=== PATIENT | female | born 1985 | race Caucasian/White ===

== ENCOUNTER 2017-12-12 17:15 | Observation (INO) | payer OTHER ==
[~2017-12-12 17:15] MED LIST: ENAL2.5T PO; TRAM50TA PO
[2017-12-12] MEDS ORDERED: ACETAMINOPHEN 500 MG CPLT PO PRN (17:30)
[2017-12-12] MEDS ORDERED: SODIUM CHLORIDE 0.9% FLUSH 10 ML FLUSH IV FLUSH PRN (17:30)
[2017-12-12] MEDS ORDERED: NITROGLYCERIN 0.4 MG SL 25 TABS/BTL SL PRN (17:30)
[2017-12-12] MEDS ORDERED: ONDANSETRON HCL 4 MG/2 ML VIAL IV PUSH PRN (17:30)
[2017-12-12 18:02] VITALS: BP 167/94; PULSE 79; RESP 16; TEMP 98; O2SAT 99
[2017-12-12 19:43] LABS: TROPONIN I LESS THAN 0.02 NG/ML (0.02-0.05)
[2017-12-12 20:04] VITALS: BP 140/91; PULSE 82; RESP 16; TEMP 98; O2SAT 99
[2017-12-12] MEDS: SODIUM CHLORIDE 0.9% FLUSH 10 ML FLUSH IV FLUSH SCH (21:00)
[2017-12-12 21:18] LABS: TROPONIN I LESS THAN 0.02 NG/ML (0.02-0.05)
[2017-12-12 23:53] VITALS: BP 140/82; PULSE 91; RESP 16; TEMP 97.4; O2SAT 96
[2017-12-13 04:00] VITALS: BP 127/67; PULSE 76; RESP 16; TEMP 97.6; O2SAT 96
[2017-12-13 06:54] VITALS: PULSE 80
[2017-12-13 06:56] VITALS: PULSE 82
[2017-12-13 07:54] VITALS: BP 134/77; PULSE 99; RESP 18; TEMP 98; O2SAT 96
[2017-12-13] MEDS: SODIUM CHLORIDE 0.9% FLUSH 10 ML FLUSH IV FLUSH SCH (07:59)
--- NOTE | 2017-12-13 08:47 | MH ---
cc: Glen Fiore MD DATE OF ADMISSION: 12/12/2017 HISTORY OF PRESENT ILLNESS: This is a 32-year-old woman who was admitted to the hospital after having complaints of chest discomfort. She was awakened from sleep yesterday with a sensation of a weight on her chest. She noted that she felt unable to take a complete deep breath. No diaphoresis was present. She did have some mild nausea and some mild dizziness. This persisted throughout the day. She came to the emergency department in [place] where she was subsequently admitted and sent here to the chest pain center. Since her admission to the hospital, the serial electrocardiograms and troponins have been unremarkable. A D-dimer was 0.33. Chest x-ray was also unremarkable. She is feeling well now and has had resolution of her discomfort. Risks factors for coronary disease include a history of hypertension, which she noted the onset of several months ago. She has been treated with lisinopril, but her blood pressure continues to be out of control with systolics in the 140-150 range. No history of diabetes or hyperlipidemia, has been present. She does have a father who in his 30s of a myocardial infarction. PAST MEDICAL HISTORY: Otherwise unremarkable. ALLERGIES: NONE, ALTHOUGH SHE HAS HAD AN ADVERSE REACTION TO NAPROXEN IN THE PAST. SOCIAL HISTORY: The patient is a nonsmoker. She occasionally uses alcohol. She does not use recreational drugs. MEDICATIONS: Her medications at home have included Lisinopril 20 mg daily. REVIEW OF SYSTEMS: Otherwise unremarkable. PHYSICAL EXAM: VITAL SIGNS: Her blood pressure is 134/77, pulse is 70 and regular. NECK: There is no neck vein distention. Carotids are normal. LUNGS: Clear. CARDIOVASCULAR: Exam reveals a regular rate and rhythm. No significant murmur present and there is no gallop noted. EXTREMITIES: Reveal no edema. Peripheral pulses are intact. ASSESSMENT: The patient has had atypical chest discomfort. PLAN: We will plan a treadmill exercise test for further evaluation. MD FABIÁN Peres/MARILEE , 08:30 AM , 08:46 AM
[2017-12-13] MEDS ORDERED: ASPIRIN 325 MG TAB PO SCH (09:00)
[2017-12-13] MEDS ORDERED: HYDR25TA5 PO (10:55)
--- NOTE | 2017-12-13 10:55 | HHI.DCPOC ---
Discharge Care Plan Diagnosis: (1) Atypical chest pain (2) Hypertension Goals to Promote Your Health * To prevent worsening of your condition and complications * To maintain your health at the optimal level Directions to Meet Your Goals Take your medications as prescribed Follow your dietary instruction Follow activity as directed Keep your appointments as scheduled Take your immunizations and boosters as scheduled If your symptoms worsen call your PCP, if no PCP go to Urgent Care Center or Emergency Room Smoking is Dangerous to Your Health. Avoid second hand smoke Call the 24-hour hour crisis hotline for domestic abuse at [facility] December 13, 2017 10:55
[2017-12-13] MEDS ORDERED: LISI-515 PO (11:06)
[2017-12-13 14:28] VITALS: O2SAT 96
--- NOTE | 2017-12-13 16:18 | EKG ---
Date Performed: 12/12/2017 Time Performed: 20:43:08 PTAGE: 32 years EKG: Sinus rhythm NORMAL ECG NO PREVIOUS TRACING DOCTOR: Glen Fiore Interpretating Date/Time 12/13/2017 16:16:11
--- NOTE | 2017-12-13 16:24 | TR ---
Date Performed: 12/13/2017 Time Performed: 10:23:38 DOCTOR: Glen Fiore DRUG LIST: CLINICAL HISTORY: REASON FOR TEST: REASON FOR ENDING: OBSERVATION: CONCLUSION: Kalpesh protocol completed. Stopped sec to reaching target heart rate and leg fatigue. Maximum YV=101 Target HR Achieved=86.0% Maximum JT=675/84 Total Exercise Time=6:45. No reprod chest discomfort. No ectopy. No st t segment changes, nondiagnostic. Nonspecific t waves changes at baselin e. Mildly hypertensive response. Recovery quick and unremarkable. COMMENTS: \ETT
== END 2017-12-13 17:03 | disposition home or self-care (01) ==
LOC: NEDDLT 17:15 → NEPGCP 17:30
PROVIDERS: ADMIT Internal Medicine Interventional Cardiology; ATTEND Internal Medicine Interventional Cardiology
DX: R07.89 Other chest pain (principal); I10 Essential (primary) hypertension
CPT/HCPCS: 71046; 80048; 82550; 83735; 84484; 84702; 85025; 85379; 85610; 85730; 93005; 93017; 96374; 99285; G0378; J2270